=== PATIENT | male | born 1985 | race Caucasian/White ===

== ENCOUNTER 2017-03-22 10:15 | Outpatient (CLI) | payer MEDICAID ==
[2017-03-22 10:33] LABS: HGB - HEMOGLOBIN 15.3 g/dL (14.0-18.0); MEAN CORPUSCULAR HEMOGLOBIN 29.2 pg (27.0-31.0); MEAN CORPUSCULAR HGB CONC 33.9 g/dL (32.0-36.0); MEAN CORPUSCULAR VOLUME 86.2 fL (80.0-94.0); MEAN PLATELET VOLUME 7.6 fL (7.4-11.4); RED BLOOD COUNT 5.22 10^6/uL (4.70-6.10); RED CELL DISTRIBUTION WIDTH 14.4 % (12.0-15.0)
[2017-03-22 10:50] LABS: CREATININE 1.4 mg/dL (0.6-1.2); POTASSIUM 4.2 mmol/L (3.5-5.0)
[2017-03-22 10:51] LABS: HEMOGLOBIN A1C 1.49 g/dL
== END 2017-03-22 10:16 | disposition home or self-care (01) ==
LOC: LAB 10:15
PROVIDERS: ATTEND Internal Medicine Nephrology
DX: N05.9 Unspecified nephritic syndrome with unspecified morphologic changes (principal); R80.9 Proteinuria, unspecified
CPT/HCPCS: 36415; 80048; 82570; 83036; 84156

== ENCOUNTER 2017-09-27 20:26 | Outpatient (CLI) | payer MEDICAID | END 2017-09-27 20:27 | disposition short-term general hospital (02) | LOC: EMS 20:26 | PROVIDERS: ATTEND Surgery | DX: E87.1 Hypo-osmolality and hyponatremia (principal); E86.0 Dehydration; R73.9 Hyperglycemia, unspecified; Z94.0 Kidney transplant status | CPT/HCPCS: A0425; A0426 ==

== ENCOUNTER 2017-12-27 10:07 | Outpatient (CLI) | payer MEDICAID ==
[2017-12-27 10:44] LABS: BASOPHILS % (AUTO) 0.6 %; EOSINOPHILS # (AUTO) 0.1 10^3/uL (0.0-0.7); EOSINOPHILS % (AUTO) 1.3 %; HGB - HEMOGLOBIN 16.1 g/dL (14.0-18.0); LYMPHOCYTES # (AUTO) 2.4 10^3/uL (1.5-3.5); LYMPHOCYTES % (AUTO) 39.9 %; MEAN CORPUSCULAR HEMOGLOBIN 29.1 pg (27.0-31.0); MEAN CORPUSCULAR VOLUME 83.1 fL (80.0-94.0); MEAN PLATELET VOLUME 8.3 fL (7.4-11.4); MONOCYTES # (AUTO) 0.5 10^3/uL (0.0-1.0); MONOCYTES % (AUTO) 7.9 %; NEUTROPHILS # (AUTO) 3.1 10^3/uL (1.5-6.6); NEUTROPHILS % (AUTO) 50.3 %; PLT - PLATELET COUNT 149 10^3/uL (130-450); RED BLOOD COUNT 5.55 10^6/uL (4.70-6.10); RED CELL DISTRIBUTION WIDTH 14.5 % (12.0-15.0); WHITE BLOOD COUNT 6.1 x10^3/uL (4.8-10.8)
[2017-12-27 10:50] LABS: BILIRUBIN,URINE NEGATIVE (NEGATIVE); GLUCOSE, URINE (UA) >=1000 mg/dL (NEGATIVE); KETONES,URINE (UA) NEGATIVE (NEGATIVE); LEUKOCYTE ESTERASE, URINE NEGATIVE (NEGATIVE); NITRITE,URINE NEGATIVE (NEGATIVE); OCCULT BLOOD,URINE TRACE-INTA (NEGATIVE); PROTEIN,URINE 100 mg/dL (NEGATIVE); UROBILINOGEN,URINE 0.2 (NORMAL) E.U./dL (NORMAL)
[2017-12-27 10:53] LABS: CLARITY,URINE CLEAR (CLEAR)
[2017-12-27 10:54] LABS: ALBUMIN 4.8 g/dL (3.2-5.5); ALBUMIN/GLOBULIN RATIO 1.8 (1.0-2.2); CALCIUM 10.1 mg/dL (8.5-10.3); CREATININE 1.2 mg/dL (0.6-1.2); TOTAL PROTEIN 7.5 g/dL (6.7-8.2)
[2017-12-27 11:02] LABS: BACTERIA,URINE Few /HPF (None Seen); RBC,URINE 0-5 /HPF (0-5); SQUAMOUS EPITHELIAL CELL,UR FEW Squamous (<= Few)
[2017-12-27 11:23] LABS: CREATININE,URINE 94.9 mg/dL; PROTEIN/CREATININE RATIO,URINE 0.7 (<=0.2)
== END 2017-12-27 10:08 | disposition home or self-care (01) ==
LOC: LAB 10:07
PROVIDERS: ATTEND Internal Medicine
DX: Z94.0 Kidney transplant status (principal); Z48.298 Encounter for aftercare following other organ transplant; T86.90 Unspecified complication of unspecified transplanted organ and tissue; E83.40 Disorders of magnesium metabolism, unspecified
CPT/HCPCS: 36415; 80053; 80197; 81001; 82570; 83735; 84100; 84156; 85025

== ENCOUNTER 2018-12-26 10:03 | Outpatient (CLI) | payer MEDICAID ==
[2018-12-26 10:26] LABS: HGB - HEMOGLOBIN 15.6 g/dL (14.0-18.0); MEAN CORPUSCULAR HEMOGLOBIN 29.3 pg (27.0-31.0); MEAN CORPUSCULAR HGB CONC 33.6 g/dL (32.0-36.0); MEAN CORPUSCULAR VOLUME 87.3 fL (80.0-94.0); MEAN PLATELET VOLUME 8.5 fL (7.4-11.4); RED BLOOD COUNT 5.33 10^6/uL (4.70-6.10); RED CELL DISTRIBUTION WIDTH 13.5 % (12.0-15.0); WHITE BLOOD COUNT 5.8 x10^3/uL (4.8-10.8)
[2018-12-26 10:30] LABS: CALCIUM 10.6 mg/dL (8.5-10.3); CREATININE 1.3 mg/dL (0.6-1.2)
== END 2018-12-26 10:04 | disposition home or self-care (01) ==
LOC: LAB 10:03
PROVIDERS: ATTEND Internal Medicine Nephrology
DX: N05.9 Unspecified nephritic syndrome with unspecified morphologic changes (principal); D70.9 Neutropenia, unspecified; D63.1 Anemia in chronic kidney disease; T86.10 Unspecified complication of kidney transplant
CPT/HCPCS: 36415; 80048; 80197; 85027

== ENCOUNTER 2018-12-27 15:20 | Outpatient (CLI) | payer MEDICAID ==
[2018-12-27 15:53] LABS: HB2 TOTAL 16.5 g/dL; HEMOGLOBIN A1C % 13.2 % (4.6-6.2)
[2018-12-27 15:58] LABS: CREATININE,URINE 30.4 mg/dL; PROTEIN/CREATININE RATIO,URINE 0.8 (<=0.2)
[2018-12-27 16:08] LABS: CALCIUM 10.2 mg/dL (8.5-10.3); CREATININE 1.3 mg/dL (0.6-1.2); PHOSPHORUS 2.5 mg/dL (2.5-4.6)
== END 2018-12-27 15:21 | disposition home or self-care (01) ==
LOC: LAB 15:20
PROVIDERS: ATTEND Internal Medicine Nephrology
DX: N05.9 Unspecified nephritic syndrome with unspecified morphologic changes (principal); E11.9 Type 2 diabetes mellitus without complications; R80.9 Proteinuria, unspecified; E83.30 Disorder of phosphorus metabolism, unspecified; N25.81 Secondary hyperparathyroidism of renal origin
CPT/HCPCS: 36415; 80048; 82570; 83036; 83970; 84100; 84156

== ENCOUNTER 2019-08-12 10:15 | Outpatient (CLI) | payer MEDICAID ==
[2019-08-12 12:20] LABS: BASOPHILS % (AUTO) 0.4 %; EOSINOPHILS # (AUTO) 0.1 10^3/uL (0.0-0.7); LYMPHOCYTES # (AUTO) 1.7 10^3/uL (1.5-3.5); LYMPHOCYTES % (AUTO) 25.3 %; MEAN CORPUSCULAR HEMOGLOBIN 28.3 pg (27.0-31.0); MEAN CORPUSCULAR HGB CONC 32.3 g/dL (32.0-36.0); MEAN CORPUSCULAR VOLUME 87.5 fL (80.0-94.0); MEAN PLATELET VOLUME 11.5 fL (7.4-11.4); MONOCYTES # (AUTO) 0.6 10^3/uL (0.0-1.0); MONOCYTES % (AUTO) 8.9 %; NEUTROPHILS # (AUTO) 4.4 10^3/uL (1.5-6.6); PLT - PLATELET COUNT 162 10^3/uL (130-450); RED CELL DISTRIBUTION WIDTH 13.2 % (12.0-15.0); WHITE BLOOD COUNT 6.9 x10^3/uL (4.8-10.8)
[2019-08-12 12:45] LABS: CREATININE,URINE 59.3 mg/dL; MICROALBUM/CREATININE RATIO,UR 649.2 ug/mg (<30.0); MICROALBUMIN,URINE 38.5 mg/dL (0-300.0)
[2019-08-12 13:38] LABS: ALBUMIN 4.5 g/dL (3.2-5.5); ALBUMIN/GLOBULIN RATIO 1.7 (1.0-2.2); ALKALINE PHOSPHATASE 126 IU/L (42-121); ALT ALANINE AMINOTRANSFERASE 49 IU/L (10-60); AST ASPARTATE AMINOTRANSFERASE 26 IU/L (10-42); BILIRUBIN,TOTAL 0.9 mg/dL (0.2-1.0); BUN - BLOOD UREA NITROGEN 19 mg/dL (6-20); CALCIUM 10.1 mg/dL (8.5-10.3); CARBON DIOXIDE - CO2 24 mmol/L (21-32); CHLORIDE 102 mmol/L (101-111); CHOL/HDL RATIO 14.7 (<5.0); CHOLESTEROL 382 mg/dL; CREATININE 1.1 mg/dL (0.6-1.2); GFR - MDRD 77 (>89); GLUCOSE 310 mg/dL (70-100); HDL CHOLESTEROL 26 mg/dL; SODIUM 136 mmol/L (135-145); TOTAL PROTEIN 7.1 g/dL (6.7-8.2)
[2019-08-12 14:08] LABS: HB2 TOTAL 16.1 g/dL; HEMOGLOBIN A1C 2.25 g/dL; HEMOGLOBIN A1C % 14.9 % (4.6-6.2)
[2019-08-12 15:10] LABS: LDL CHOLESTEROL,DIRECT 74 mg/dL; LDLD/HDL RATIO 2.8 (<3.6)
== END 2019-08-12 23:59 | disposition home or self-care (01) ==
LOC: LAB.N 10:15
PROVIDERS: ATTEND Physician Assistant Medical
DX: T86.10 Unspecified complication of kidney transplant (principal); C80.2 Malignant neoplasm associated with transplanted organ; D89.89 Other specified disorders involving the immune mechanism, not elsewhere classified; E78.5 Hyperlipidemia, unspecified; T38.0X5S Adverse effect of glucocorticoids and synthetic analogues, sequela; E09.9 Drug or chemical induced diabetes mellitus without complications
CPT/HCPCS: 36415; 80050; 80061; 82043; 82306; 82570; 83036; 83721

== ENCOUNTER 2019-11-07 08:00 | Outpatient (CLI) | payer MEDICAID | END 2019-11-07 08:01 | disposition home or self-care (01) | LOC: LAB.N 08:00 | PROVIDERS: ATTEND Physician Assistant Medical | DX: E55.9 Vitamin D deficiency, unspecified (principal) | CPT/HCPCS: 36415; 82306; 83970 ==

== ENCOUNTER 2020-01-05 10:21 | Outpatient (CLI) | payer MEDICAID ==
[2020-01-05 10:48] LABS: HGB - HEMOGLOBIN 14.6 g/dL (14.0-18.0); MEAN CORPUSCULAR HEMOGLOBIN 30.5 pg (27.0-31.0); MEAN CORPUSCULAR HGB CONC 34.5 g/dL (32.0-36.0); MEAN CORPUSCULAR VOLUME 88.5 fL (80.0-94.0); MEAN PLATELET VOLUME 10.8 fL (7.4-11.4); RED BLOOD COUNT 4.78 10^6/uL (4.70-6.10); RED CELL DISTRIBUTION WIDTH 13.2 % (12.0-15.0); WHITE BLOOD COUNT 6.5 x10^3/uL (4.8-10.8)
[2020-01-05 11:01] LABS: CALCIUM 9.3 mg/dL (8.5-10.3); CREATININE 1.1 mg/dL (0.6-1.2)
[2020-01-05 11:04] LABS: CREATININE,URINE 130.2 mg/dL; PROTEIN/CREATININE RATIO,URINE 0.7 (<=0.2)
[2020-01-05 11:08] LABS: HB2 TOTAL 14.6 g/dL; HEMOGLOBIN A1C 1.95 g/dL; HEMOGLOBIN A1C % 14.4 % (4.6-6.2)
== END 2020-01-05 10:22 | disposition home or self-care (01) ==
LOC: LAB 10:21
PROVIDERS: ATTEND Internal Medicine Nephrology
DX: N05.9 Unspecified nephritic syndrome with unspecified morphologic changes (principal); D70.9 Neutropenia, unspecified; T86.10 Unspecified complication of kidney transplant; R80.9 Proteinuria, unspecified; E11.22 Type 2 diabetes mellitus with diabetic chronic kidney disease; N18.9 Chronic kidney disease, unspecified; D63.1 Anemia in chronic kidney disease
CPT/HCPCS: 36415; 80048; 80197; 82570; 83036; 84156; 85027

== ENCOUNTER 2021-02-25 11:46 | Outpatient (CLI) | payer MEDICAID ==
[2021-02-25 17:51] LABS: BASOPHILS % (AUTO) 0.5 %; EOSINOPHILS # (AUTO) 0.1 10^3/uL (0.0-0.7); EOSINOPHILS % (AUTO) 1.8 %; HCT - HEMATOCRIT 44.6 % (42.0-52.0); HGB - HEMOGLOBIN 15.4 g/dL (14.0-18.0); LYMPHOCYTES # (AUTO) 1.8 10^3/uL (1.5-3.5); LYMPHOCYTES % (AUTO) 29.8 %; MEAN CORPUSCULAR HEMOGLOBIN 30.4 pg (27.0-31.0); MEAN CORPUSCULAR HGB CONC 34.5 g/dL (32.0-36.0); MEAN CORPUSCULAR VOLUME 88.1 fL (80.0-94.0); MEAN PLATELET VOLUME 11.4 fL (7.4-11.4); MONOCYTES # (AUTO) 0.5 10^3/uL (0.0-1.0); MONOCYTES % (AUTO) 8.1 %; NEUTROPHILS # (AUTO) 3.7 10^3/uL (1.5-6.6); NEUTROPHILS % (AUTO) 59.2 %; PLT - PLATELET COUNT 177 10^3/uL (130-450); RED BLOOD COUNT 5.06 10^6/uL (4.70-6.10); RED CELL DISTRIBUTION WIDTH 13.4 % (12.0-15.0); WHITE BLOOD COUNT 6.2 x10^3/uL (4.8-10.8)
[2021-02-25 18:13] LABS: THYROID STIMULATING HORMONE 2.77 uIU/mL (0.34-5.60)
[2021-02-25 18:19] LABS: ALBUMIN 4.1 g/dL (3.2-5.5); ALBUMIN/GLOBULIN RATIO 1.9 (1.0-2.2); ALKALINE PHOSPHATASE 144 IU/L (42-121); ALT ALANINE AMINOTRANSFERASE 54 IU/L (10-60); AST ASPARTATE AMINOTRANSFERASE 37 IU/L (10-42); BILIRUBIN,TOTAL 0.7 mg/dL (0.2-1.0); BUN - BLOOD UREA NITROGEN 22 mg/dL (6-20); CALCIUM 10.2 mg/dL (8.5-10.3); CARBON DIOXIDE - CO2 26 mmol/L (21-32); CHLORIDE 104 mmol/L (101-111); CHOL/HDL RATIO 11.8 (<5.0); CHOLESTEROL 282 mg/dL; CREATININE 1.3 mg/dL (0.6-1.2); GFR - MDRD 63 (>89); GLUCOSE 168 mg/dL (70-100); HDL CHOLESTEROL 24 mg/dL; POTASSIUM 4.2 mmol/L (3.5-5.0); SODIUM 139 mmol/L (135-145); TOTAL PROTEIN 6.3 g/dL (6.7-8.2); TRIGLYCERIDES 1416 mg/dL
[2021-02-25 18:50] LABS: CREATININE,URINE 149.4 mg/dL; MICROALBUM/CREATININE RATIO,UR 716.2 ug/mg (<30.0)
[2021-02-25 20:20] LABS: ESTIMATED AVERAGE GLUCOSE 298 mg/dL (70-100)
== END 2021-02-25 23:59 | disposition home or self-care (01) ==
LOC: LAB.WCP 11:46
PROVIDERS: ATTEND Family Medicine
DX: E10.9 Type 1 diabetes mellitus without complications (principal); Z94.0 Kidney transplant status
CPT/HCPCS: 36415; 80050; 80061; 80197; 82043; 82570; 83036; 83721

== ENCOUNTER 2021-05-10 08:00 | Outpatient (CLI) | payer MEDICAID | END 2021-05-10 23:59 | disposition home or self-care (01) | LOC: LAB.WCP 08:00 | PROVIDERS: ATTEND Internal Medicine Nephrology | DX: T86.10 Unspecified complication of kidney transplant (principal) | CPT/HCPCS: 80197 ==

== ENCOUNTER 2021-07-16 11:16 | Outpatient (CLI) | payer MEDICAID ==
--- NOTE | 2021-07-21 02:21 | XRAY Report ---
PROCEDURE: Finger(s) RT INDICATIONS: RIGHT 4TH DIGIT INJURY TECHNIQUE: AP hand, 3 views of the fourth finger(s) acquired. Images became available for interpret ation on 07/20/2021. COMPARISON: None FINDINGS: Bones: No fractures or dislocations. No suspicious bony lesions. Soft tissues: No suspicious soft tissue calcifications. IMPRESSION: No visualized acute fracture or dislocation. However, occult injury cannot be excluded. Recommend sujatha rt interval imaging follow-up in 7-10 days as clinically indicated for additional evaluation. Reviewed by: Crystal Nair MD on 07/21/2021 1:22 AM PDT Approved by: Crystal Nair MD on 07/21/2021 1:22 AM PDT Station ID: [id number]
== END 2021-07-16 11:17 | disposition home or self-care (01) ==
LOC: DI.N 11:16
PROVIDERS: ATTEND Internal Medicine
DX: M79.644 Pain in right finger(s) (principal)

== ENCOUNTER 2021-10-12 08:00 | Outpatient (CLI) | payer MEDICAID ==
[2021-10-12 12:30] LABS: BASOPHILS % (AUTO) 0.3 %; EOSINOPHILS # (AUTO) 0.1 10^3/uL (0.0-0.7); EOSINOPHILS % (AUTO) 1.9 %; HCT - HEMATOCRIT 45.8 % (42.0-52.0); HGB - HEMOGLOBIN 15.6 g/dL (14.0-18.0); LYMPHOCYTES % (AUTO) 31.7 %; MEAN CORPUSCULAR HEMOGLOBIN 30.3 pg (27.0-31.0); MEAN CORPUSCULAR HGB CONC 34.1 g/dL (32.0-36.0); MEAN CORPUSCULAR VOLUME 88.9 fL (80.0-94.0); MEAN PLATELET VOLUME 10.9 fL (7.4-11.4); MONOCYTES # (AUTO) 0.7 10^3/uL (0.0-1.0); MONOCYTES % (AUTO) 10.4 %; NEUTROPHILS # (AUTO) 3.4 10^3/uL (1.5-6.6); NEUTROPHILS % (AUTO) 54.9 %; PLT - PLATELET COUNT 167 10^3/uL (130-450); RED BLOOD COUNT 5.15 10^6/uL (4.70-6.10); RED CELL DISTRIBUTION WIDTH 13.3 % (12.0-15.0); WHITE BLOOD COUNT 6.3 x10^3/uL (4.8-10.8)
[2021-10-12 12:45] LABS: CREATININE,URINE 101.9 mg/dL; MICROALBUM/CREATININE RATIO,UR 1039.3 ug/mg (<30.0); MICROALBUMIN,URINE 105.9 mg/dL (0-300.0)
[2021-10-12 13:06] LABS: THYROID STIMULATING HORMONE 4.24 uIU/mL (0.34-5.60)
[2021-10-12 13:09] LABS: ALBUMIN 4.2 g/dL (3.2-5.5); ALBUMIN/GLOBULIN RATIO 1.5 (1.0-2.2); ALKALINE PHOSPHATASE 133 IU/L (42-121); ALT ALANINE AMINOTRANSFERASE 87 IU/L (10-60); AST ASPARTATE AMINOTRANSFERASE 44 IU/L (10-42); BILIRUBIN,TOTAL 0.6 mg/dL (0.2-1.0); BUN - BLOOD UREA NITROGEN 24 mg/dL (6-20); CARBON DIOXIDE - CO2 25 mmol/L (21-32); CHLORIDE 105 mmol/L (101-111); CHOL/HDL RATIO 9.7 (<5.0); CHOLESTEROL 271 mg/dL; CREATININE 1.4 mg/dL (0.6-1.2); GFR - MDRD 58 (>89); GLUCOSE 190 mg/dL (70-100); HDL CHOLESTEROL 28 mg/dL; LDL CHOLESTEROL,DIRECT 133 mg/dL; PHOSPHORUS 2.7 mg/dL (2.5-4.6); POTASSIUM 4.2 mmol/L (3.5-5.0); SODIUM 138 mmol/L (135-145); TRIGLYCERIDES 406 mg/dL
[2021-10-12 13:17] LABS: ESTIMATED AVERAGE GLUCOSE 214 mg/dL (70-100); HEMOGLOBIN A1c% 9.1 % (4.27-6.07)
[2021-10-12 13:37] LABS: LDLD/HDL RATIO 4.8 (<3.6)
== END 2021-10-12 23:59 | disposition home or self-care (01) ==
LOC: LAB.WCP 08:00
PROVIDERS: ATTEND Internal Medicine
DX: E10.8 Type 1 diabetes mellitus with unspecified complications (principal); E78.1 Pure hyperglyceridemia; E55.9 Vitamin D deficiency, unspecified; N25.81 Secondary hyperparathyroidism of renal origin
CPT/HCPCS: 36415; 80050; 80061; 82043; 82306; 82570; 83036; 83721; 83970; 84100

== ENCOUNTER 2021-11-09 07:00 | Outpatient (CLI) | payer MEDICAID | END 2021-11-09 23:59 | disposition home or self-care (01) | LOC: LAB.N 07:00 | PROVIDERS: ATTEND Internal Medicine | DX: E55.9 Vitamin D deficiency, unspecified (principal) | CPT/HCPCS: 36415; 82306 ==

== ENCOUNTER 2022-05-19 11:31 | Outpatient (CLI) | payer MEDICAID ==
[2022-05-19 18:08] LABS: ALBUMIN 4.7 g/dL (3.2-5.5); ALBUMIN/GLOBULIN RATIO 1.8 (1.0-2.2); BILIRUBIN,TOTAL 0.6 mg/dL (0.2-1.0); CREATININE 1.6 mg/dL (0.6-1.2); POTASSIUM 4.1 mmol/L (3.5-5.0); TOTAL PROTEIN 7.3 g/dL (6.7-8.2)
[2022-05-19 18:27] LABS: CREATININE,URINE 121.9 mg/dL; MICROALBUMIN,URINE 89.6 mg/dL (0-300.0)
[2022-05-19 21:07] LABS: ESTIMATED AVERAGE GLUCOSE 237 mg/dL (70-100); HEMOGLOBIN A1c% 9.9 % (4.27-6.07)
== END 2022-05-19 11:32 | disposition home or self-care (01) ==
LOC: LAB.N 11:31
PROVIDERS: ATTEND Internal Medicine
DX: E10.8 Type 1 diabetes mellitus with unspecified complications (principal)
CPT/HCPCS: 36415; 80053; 82043; 82570; 83036

== ENCOUNTER 2024-01-20 08:29 | Emergency (ER) | payer MEDICAID ==
--- NOTE | 2024-01-20 10:21 | ED Physician Documentation ---
PD HPI SKIN - Stated complaint Stated Complaint: LT FOOT SORE - Chief complaint Chief Complaint: Ext Problem - History obtained from History obtained from: Patient - History of Present Illness Timing - onset: How many weeks ago (has had a callous on bottom left foot at the great toe MT head area planter/medial. Had been intact and dry/hard for awhile. Past 2 weeks, has had a softening of it with some drainage. This has continued despite local care with soak/ointment/dressing. States purulent drainage mildly from it.) Timing - duration: Other (he was trying to get appt with PCP or his Production Tech but none available soon. He is concerned about the infection not improving so here today.) Timing - details: Gradual onset, Still present Location: LLE (plantar aspect at great toe MT head callous.) Quality / character: Swelling, Draining. No: Painful (he has neuropathy so not having pain at the site.) Associated symptoms: No: Fever PD PAST MEDICAL HISTORY - Past Medical History Cardiovascular: High cholesterol Neuro: None Endocrine/Autoimmune: Type 2 diabetes : Renal insuffiency, Other Musculoskeletal: Other - Past Surgical History Past Surgical History: Yes General: Other - Present Medications Home Medications: Ambulatory Orders Medication Instructions Recorded Confirmed Insulin Lispro [Humalog] 20 units SQ TIDWM 01/12/14 03/16/20 Lisinopril 10 mg PO DAILY 01/12/14 03/16/20 Tacrolimus [Prograf] 5 mg PO BID 01/12/14 03/16/20 predniSONE [Deltasone] 5 mg PO DAILY 01/12/14 03/16/20 Insulin Glargine [Lantus Solostar] 20 units SUBQ QPM 03/16/20 03/16/20 Mycophenolate Sodium [Mycophenolic 180 mg PO TID 03/16/20 03/16/20 Acid] Pravastatin [Pravachol] 40 mg PO QPM 03/16/20 03/16/20 Doxycycline Hyclate 100 mg PO BID #14 tablet. 03/19/20 Saccharomyces Boulardii [Florastor] 250 mg PO BID #14 capsule 03/19/20 cephALEXin [Keflex] 250 mg PO Q6HR #28 capsule 03/19/20 Doxycycline Hyclate 100 mg PO BID 7 Days #14 cap 01/20/24 Mupirocin 2% Oint [Bactroban 2% 1 applic TOP TID #15 gm 01/20/24 Oint] - Allergies Allergies/Adverse Reactions: Allergies Allergy/AdvReac Type Severity Reaction Status Date / Time vancomycin AdvReac ELEVATED Verified 01/20/24 08:37 TROUGH IN RENAL TRANSPLANT PATIENT - Social History Does the pt smoke?: No Smoking Status: Never smoker Does the pt drink ETOH?: No Does the pt have substance abuse?: No - Immunizations Immunizations are current?: No - POLST Patient has POLST: No PD ED PE NORMAL - Vitals Vital signs reviewed: Yes - General General: Alert and oriented X 3, No acute distress, Well developed/nourished - Derm Derm: Normal color, Warm and dry - Extremities Extremities: Other (left foot has white skin callous about 2 cm diameter with central unroofed area. No purulence at this time. I did debride the skin with scalpel to have more open draiange/ access for cleaning, and will heal better at edges. ) Results - Vitals Vitals: Oxygen O2 Source Room air PD Medical Decision Making - ED course Complexity details: considered differential (has had callous at great toe MT head area that is now infected. It has drained itself with small central unroofing of its own. However still with drainage, and now swelling per pt. Neuropathy leads to not hurting for pt. ), d/w patient ED course: small hole in center of the callous but still a lot of thick keratin skin that is somewhat loose and rubbery c/w moist/ presume infected. I debrided the skin layer (the keratin callous, diameter about 2 cm, down to the regular skin layer. This exposed fatty tissue base without current purulence so no culture source available. No deeper layer involved. for the infection, will cover with cleansing (better access and drainage now with the debridement), topical and for now also oral antibiotics. Mild redness around edges but certainly had trapped skin abscess under the callous and want to improve infection clearance due to daibetes/neuropathy poorer healing. Departure - Departure Disposition: 01 Home, Self Care Clinical Impression: Foot infection, Callous ulcer with fat layer exposed Condition: Stable Record reviewed to determine appropriate education?: Yes Follow-Up: Yoshi Caputo MD [Primary Care Provider] - Prescriptions: Mupirocin 2% Oint [Bactroban 2% Oint] 1 applic TOP TID #15 gm Doxycycline Hyclate 100 mg PO BID 7 Days #14 cap Comments: I did trim off the skin of the callus and only see the wound going to the fatty layer. I do not see any deeper extension nor any pocket of abscess. In fact there was no drainage from the site. It looks like it had drained adequately or ready so there was no fluid obtainable for culture. Will treat it with topical and oral antibiotics at this point. Dressing over the area to protect it. 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 It looks like the callus in that area basically got infected underneath and have an open and treatable will be the most effective. However with your diabetes it can be a slow healing process and we want to ensure it does well. Forms: PCP List Discharge Date/Time: 01/20/24 11:39
[2024-01-20] MEDS: MUPIROCIN 2% OINT 1 GM TOP STA (11:26)
[2024-01-20] MEDS: DOXYCYCLINE 100 MG TABLET PO STA (11:27)
[2024-01-20 11:43] VITALS: BP 134/72; O2SAT 94
== END 2024-01-20 11:39 | disposition home or self-care (01) ==
LOC: ED 08:29
DX: L02.612 Cutaneous abscess of left foot (principal); E11.621 Type 2 diabetes mellitus with foot ulcer; L97.522 Non-pressure chronic ulcer of other part of left foot with fat layer exposed; E11.40 Type 2 diabetes mellitus with diabetic neuropathy, unspecified; Z79.4 Long term (current) use of insulin
CPT/HCPCS: 14040; 99283; A9270

== ENCOUNTER 2024-05-01 11:11 | Outpatient (CLI) | payer MEDICAID ==
[2024-05-01 17:47] LABS: BASOPHILS % (AUTO) 0.6 %; EOSINOPHILS # (AUTO) 0.1 10^3/uL (0.0-0.7); EOSINOPHILS % (AUTO) 1.8 %; HCT - HEMATOCRIT 44.7 % (42.0-52.0); HGB - HEMOGLOBIN 15.1 g/dL (14.0-18.0); LYMPHOCYTES # (AUTO) 2.3 10^3/uL (1.5-3.5); LYMPHOCYTES % (AUTO) 34.3 %; MEAN CORPUSCULAR HEMOGLOBIN 29.7 pg (27.0-31.0); MEAN CORPUSCULAR HGB CONC 33.8 g/dL (32.0-36.0); MEAN CORPUSCULAR VOLUME 87.8 fL (80.0-94.0); MEAN PLATELET VOLUME 11.1 fL (7.4-11.4); MONOCYTES # (AUTO) 0.7 10^3/uL (0.0-1.0); MONOCYTES % (AUTO) 10.9 %; NEUTROPHILS # (AUTO) 3.5 10^3/uL (1.5-6.6); NEUTROPHILS % (AUTO) 51.7 %; PLT - PLATELET COUNT 175 10^3/uL (130-450); RED BLOOD COUNT 5.09 10^6/uL (4.70-6.10); RED CELL DISTRIBUTION WIDTH 13.6 % (12.0-15.0); WHITE BLOOD COUNT 6.7 x10^3/uL (4.8-10.8)
[2024-05-01 18:09] LABS: ALBUMIN 4.4 g/dL (3.2-5.5); ALBUMIN/GLOBULIN RATIO 1.9 (1.0-2.2); ALKALINE PHOSPHATASE 111 IU/L (42-121); ALT ALANINE AMINOTRANSFERASE 36 IU/L (10-60); AST ASPARTATE AMINOTRANSFERASE 19 IU/L (10-42); BILIRUBIN,TOTAL 0.4 mg/dL (0.2-1.0); BUN - BLOOD UREA NITROGEN 24 mg/dL (6-20); CALCIUM 11.1 mg/dL (8.5-10.3); CARBON DIOXIDE - CO2 26 mmol/L (21-32); CHLORIDE 108 mmol/L (101-111); CHOL/HDL RATIO 10.9 (<5.0); CHOLESTEROL 272 mg/dL; CREATININE 1.6 mg/dL (0.6-1.3); GFR - MDRD 49 (>89); GLUCOSE 144 mg/dL (74-104); HDL CHOLESTEROL 25 mg/dL; POTASSIUM 4.4 mmol/L (3.5-4.5); SODIUM 140 mmol/L (135-145); TOTAL PROTEIN 6.7 g/dL (6.4-8.9)
[2024-05-01 18:10] LABS: CREATININE,URINE 73.3 mg/dL; PROTEIN/CREATININE RATIO,URINE 1.5 (<=0.2)
[2024-05-01 18:20] LABS: TRIGLYCERIDES 1180 mg/dL
[2024-05-01 18:21] LABS: MICROALBUM/CREATININE RATIO,UR 961.8 ug/mg (<30.0); MICROALBUMIN,URINE 70.5 mg/dL
[2024-05-01 18:35] LABS: LDL CHOLESTEROL,DIRECT 71 mg/dL (75-193); LDLD/HDL RATIO 2.8 (<3.6)
[2024-05-01 21:31] LABS: ESTIMATED AVERAGE GLUCOSE 249 mg/dL (70-100); HEMOGLOBIN A1c% 10.3 % (4.27-6.07)
== END 2024-05-01 11:12 | disposition home or self-care (01) ==
LOC: LAB.N 11:11
PROVIDERS: ATTEND Internal Medicine
DX: E10.8 Type 1 diabetes mellitus with unspecified complications (principal); E78.1 Pure hyperglyceridemia; E55.9 Vitamin D deficiency, unspecified; N25.81 Secondary hyperparathyroidism of renal origin; D47.Z1 Post-transplant lymphoproliferative disorder (PTLD)
CPT/HCPCS: 36415; 80053; 80061; 82043; 82306; 82570; 83036; 83721; 83970; 84156; 85025

== ENCOUNTER 2024-05-13 10:33 | Outpatient (CLI) | payer MEDICAID ==
[2024-05-13 18:27] LABS: PROLACTIN 9.85 ng/mL
[2024-05-14 22:08] LABS: KAPPA FREE LT CHAINS SERUM 31.9 mg/L (3.3-19.4); KAPPA/LAMBDA RATIO SERUM 1.47 (0.26-1.65); LAMBDA FREE LT CHAINS SERUM 21.7 mg/L (5.7-26.3)
== END 2024-05-13 10:34 | disposition home or self-care (01) ==
LOC: LAB.N 10:33
PROVIDERS: ATTEND Internal Medicine
DX: E83.52 Hypercalcemia (principal); D47.Z1 Post-transplant lymphoproliferative disorder (PTLD); Z85.79 Personal history of other malignant neoplasms of lymphoid, hematopoietic and related tissues
CPT/HCPCS: 36415; 81599; 82330; 82397; 82652; 82784; 83002; 83521; 83615; 84146; 84155; 84165; 84403; 86334

== ENCOUNTER 2024-05-15 12:12 | Outpatient (CLI) | payer MEDICAID ==
[2024-05-20 11:09] LABS: FREE KAPPA LT CHAINS URINE 140.62 mg/L (1.17-86.46); FREE LAMBDA LT CHAINS URINE 31.91 mg/L (0.27-15.21); KAPPA/LAMBDA RATIO URINE 4.41 (1.83-14.26)
== END 2024-05-15 12:13 | disposition home or self-care (01) ==
LOC: LAB.R 12:12
PROVIDERS: ATTEND Internal Medicine
DX: E83.52 Hypercalcemia (principal)
CPT/HCPCS: 81599

== ENCOUNTER 2024-05-23 10:47 | Outpatient (CLI) | payer MEDICAID ==
--- NOTE | 2024-05-23 22:18 | XRAY Report ---
PROCEDURE: Bone Survey Complete INDICATIONS: HYPERCALCEMIA,PERIPHERAL STEM CELL TRANSPLANTATION TECHNIQUE: Multiple views obtained of various bony structures as described below. COMPARISON: None FINDINGS: Skull (lateral): No suspicious bony lesions. No fractures. Thoracic spine (AP, lateral): No suspicious bony lesions. No acute vertebral body compression fract ures. Lumbar spine (AP, lateral): No suspicious bony lesions. No acute vertebral body compression fractur es. Pelvis (AP): No suspicious bony lesions. No fractures. Overlying soft tissues appear unremarkable. Right and left humeri (AP): No suspicious bony lesions. No fractures. Overlying soft tissues appea r unremarkable. Right and left femurs (AP): No suspicious bony lesions. No fractures. Overlying soft tissues appea r unremarkable. IMPRESSION: No appreciable lesions. Reviewed by: Crystal Nair MD on 05/23/2024 10:17 PM PDT Approved by: Crystal Nair MD on 05/23/2024 10:17 PM PDT Station ID: [id number]
== END 2024-05-23 10:48 | disposition home or self-care (01) ==
LOC: DI 10:47
PROVIDERS: ATTEND Internal Medicine
DX: E83.52 Hypercalcemia (principal); Z94.84 Stem cells transplant status; D47.Z1 Post-transplant lymphoproliferative disorder (PTLD)